=== PATIENT | male | born 1965 | race Caucasian/White ===

== ENCOUNTER → 2018-03-18 14:08 | Outpatient (CLI) | payer BC, SELFPAY ==
--- NOTE | 2018-03-18 14:14 | XR_ITS ---
XR foot LT min 3V HISTORY: ITS.REASON: RIGID PES PLANUS ORDERING PHYSICIAN: Fox Teague MD PATIENT AGE: 53 years COMPARISON: None FINDINGS: There is moderate pes planus. Bony hypertrophic changes are present dorsally at the talonavicular joint. Severe subarticular cystic changes are present involving the cuneiforms. There are dysplastic changes of the navicular is not well delineated due to the severe cystic changes. There is medial displacement of the navicular. IMPRESSION: Pes planus with destructive changes of the navicular and severe subarticular cystic changes of the cuneiforms. There is medial displacement of the navicular. These findings are consistent with the mid foot Charcot joint
--- NOTE | 2018-03-18 14:14 | XR_ITS ---
XR ankle LT min 3V HISTORY: ITS.REASON: RIGID PES PLANUS ORDERING PHYSICIAN: Fox Teague MD PATIENT AGE: 53 years Comparison: None FINDINGS: No fracture or dislocation. No lytic or blastic change. There is normal mineralization.. The joint spaces are well-preserved. No significant degenerative/arthritic changes. No erosive changes evident. Mid foot Charcot joint is noted as described the foot report IMPRESSION: Negative ankle
== END ==
PROVIDERS: PCP Family Medicine; Visit Provider Family Medicine
DX: Q66.52 Congenital pes planus, left foot (principal); G89.29 Other chronic pain; M25.572 Pain in left ankle and joints of left foot
CPT/HCPCS: 73610; 73630

== ENCOUNTER → 2018-06-15 08:54 | Outpatient (CLI) | payer BC, SELFPAY ==
--- NOTE | 2018-06-15 08:58 | XR_ITS ---
XR ankle wt bearing LT min 3V HISTORY: Bilateral ankle pain ITS.REASON: pain ORDERING PHYSICIAN: Lima Macedo DPM PATIENT AGE: 53 years Comparison: None FINDINGS: No fracture or dislocation. No lytic or blastic change. There is normal mineralization.. The joint spaces are well-preserved. No significant degenerative/arthritic changes. No erosive changes evident. IMPRESSION: Negative ankle, no acute finding
--- NOTE | 2018-06-15 08:58 | XR_ITS ---
XR ankle wt bearing RT min 3V HISTORY: ITS.REASON: pain ORDERING PHYSICIAN: Lima Macedo DPM PATIENT AGE: 53 years Comparison: None FINDINGS: No fracture or dislocation. No lytic or blastic change. There is normal mineralization.. There are 2 calcific densities which are medial to the distal aspect of the fibula and may represent sequela from old injury or degenerative change. The ankle mortise is well preserved and the talar dome has an unremarkable appearance. IMPRESSION: 1. No acute finding. 2. Accessory ossicles versus old fracture medial to the tip of the fibula
--- NOTE | 2018-06-15 08:58 | XR_ITS ---
XR foot wt bearing LT 3V HISTORY: ITS.REASON: pain ORDERING PHYSICIAN: Lima Macedo DPM PATIENT AGE: 53 years COMPARISON: None FINDINGS: There is moderate pes planus. Bony hypertrophic changes are present dorsally at the talonavicular joint. Severe subarticular cystic changes are present involving the cuneiforms. There are severe dysplastic changes of the navicular with flattening of the navicular and superior displacement and medial displacement of the remaining navicular fragment. Severe subarticular cystic changes are present at the navicular cuneiform joint involving both medial and intermediate cuneiforms. IMPRESSION: Pes planus with destructive changes of the navicular and severe subarticular cystic changes of the cuneiforms. There is medial displacement of the navicular. These findings are consistent with the mid foot Charcot joint
--- NOTE | 2018-06-15 08:58 | XR_ITS ---
XR foot wt bearing RT 3V HISTORY: Foot pain ITS.REASON: pain ORDERING PHYSICIAN: Lima Macedo DPM PATIENT AGE: 53 years COMPARISON: None FINDINGS: No fracture or dislocation. No lytic or blastic change. There is normal mineralization.. The joint spaces are well-preserved. No significant degenerative/arthritic changes. No erosive changes evident. IMPRESSION: Negative, no acute finding
== END ==
PROVIDERS: PCP Family Medicine; Visit Provider Podiatrist
DX: M76.822 Posterior tibial tendinitis, left leg (principal); M19.072 Primary osteoarthritis, left ankle and foot; M79.672 Pain in left foot
CPT/HCPCS: 73610; 73630

== ENCOUNTER → 2018-07-01 10:05 | Outpatient (POV) | payer BC, SELFPAY | PROVIDERS: Visit Provider Podiatrist | DX: Z00.00 Encounter for general adult medical examination without abnormal findings (principal) ==

== ENCOUNTER 2018-08-06 08:00 | Outpatient (RCR) | payer BC, SELFPAY ==
--- NOTE | 2018-06-23 12:00 | HMH.PTOPEV ---
PT Outpatient Evaluation Rehab PT Outpatient Evaluation Start: 06/23/18 11:48 Freq: Status: Active Protocol: Document 06/23/18 11:48 RADHA (Rec: 06/23/18 11:59 VELVETBRIAN [id number]) Electronically Signed By Forest Washington, PT 06/23/18 11:48 Outpatient Therapy Subjective History Subjective History Patient is a 53 year old male presenting to outpatient PT with report of L foot/ankle pain of insidous onset starting approximately 2 years ago. Pt report relief of pain with addition of ankle brace and powerstep inserts. 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 TTP about posterior tibialis distal attachment. Comorbidities include hx of seizures, narcolepsy and HTN. Chief Complaint Pain,Stiff,Swelling Symptom Type Sharp,Tingling Symptoms Relieved By Rest/Positioning,Ice, Prescription Meds Symptoms Aggravated By Standing,Physical Activity, Walking Prior Functional Limitations None Current Functional Limitations Housework,Standing,Squatting, Recreation Activity,Walking, Stairs,Balance Symptom Description Intermittent Level of pain today (0-10) 4 Pain scale - at its best (0-10) 2 Pain scale - at its worst (0-10) 8 Ankle/Foot Eval Gait Observation General Gait Pattern Observation Antalgic Gait,Decrease Weight Bear (L) Palpation Tenderness left Ankle/Foot Palpation Findings Tenderness Ankle/Foot Palpation Overall Comment distal post-tib insertion/mm belly/tendon ROM Ankle/Foot Dorsiflexion w/Knee Extended 8 Active Range Motion (degrees) Ankle/Foot Plantar Flexion Active Range 60 of Motion (degrees) Ankle/Foot Eversion Active Range of 11 Motion (degrees) Ankle/Foot Inversion Active Range of 22 Motion (degrees) Ankle/Foot ROM Limitations Soft Tissue Tightness Great Toe ROM Reason Not Measured Within Functional Limits Accessory Movements Ankle Accessory Movements that Elicit Tibial Ventral Charlotte,Talus Symptoms Dorsal Charlotte MMT left Ankle Dorsiflexion Strength Grade 4 Good Ankle Plantarflexion Strength Grade 4 Good Foot Eversion Strength Grade 4 Good
== END 2018-08-06 08:05 | disposition home or self-care (01) ==
LOC: PT 08:00
PROVIDERS: Visit Provider Podiatrist
DX: M76.822 Posterior tibial tendinitis, left leg (principal); M19.072 Primary osteoarthritis, left ankle and foot
CPT/HCPCS: 97010; 97014; 97035; 97110; 97163; G0283

== ENCOUNTER → 2020-03-14 16:54 | Outpatient (CLI) | payer BC, SELFPAY ==
[2020-03-16 07:41] LABS: Covid-19 Nasal PCR Sendout P&C NEGATIVE
== END ==
PROVIDERS: PCP Family Medicine; Visit Provider Family Medicine
DX: Z11.52 Encounter for screening for COVID-19 (principal); R68.89 Other general symptoms and signs
CPT/HCPCS: U0004

== ENCOUNTER → 2020-08-15 12:51 | Outpatient (CLI) | payer BC, SELFPAY ==
--- NOTE | 2020-08-15 12:57 | XR_ITS ---
PROCEDURE: XR LUMBAR SPINE MIN 4V CLINICAL INDICATION: NEUROGENIC CLAUDATION, ACUTE MIDLINE LOW BACK PAIN COMPARISON: No exams were available for comparison FINDINGS: Five views are obtained. Severe degenerative change of L5-S1 with extensive diffuse degenerative changes also seen at the lumbar spine with moderate scoliosis convex to the left. Severe bilateral facet spondylosis at L5-S1 with moderate bilateral facet spondylosis of L3-4 and L4-5. SI joints are normal. Some degenerative change of the hip joints. IMPRESSION: Severe diffuse degenerative changes of the lumbar spine most pronounced at L5-S1 extensive bilateral facet spondylosis of the lower lumbar levels. Extensive sclerotic change of the endplates of L5 and S1. Suggest MRI lumbar spine for further assessment of these findings. No acute fracture or subluxation. Moderate scoliosis convex to the left. Dictated by: Bryson English MD 08/15/2020 13:36 Bryson English MD in [place] 08/15/2020 13:36
== END ==
PROVIDERS: PCP Family Medicine; Visit Provider Family Medicine
DX: M48.062 Spinal stenosis, lumbar region with neurogenic claudication (principal); M54.5 Low back pain; Z92.29 Personal history of other drug therapy
CPT/HCPCS: 72110

== ENCOUNTER → 2020-08-17 08:01 | Outpatient (CLI) | payer BC, SELFPAY ==
--- NOTE | 2020-08-17 08:04 | CT_ITS ---
PROCEDURE: CT LUNG SCREENING CLINICAL INDICATION: H/O NICOTINE DEPENDENCE COMPARISON: No exams were available for comparison TECHNIQUE: The exam was performed on a GE Light Speed [address] scanner using 2.90 mGy CTDI. A low dose helical CT CHEST was performed on a multi-detector scanner. All CT scans at the facility use one or more dose reduction, viz: automated exposure control, ma/kV adjustment per patient size (including targeted exams where dose is matched to indication, i.e. head), or iterative reconstruction technique. The LDCT was performed in a facility that meets the criteria for the screening program. Data regarding this exam was submitted to ACR which is an approved registry. The order for this exam indicates that it came as a result of a lung cancer screening counseling shard decision-making visit that included all the elements required of such a visit including smoking cessation. The radiologist interpreting this exam meets the CMS criteria for the LDCT lung cancer screening program. The exam is reported using the Lung-RADS classification scale and reported to the ACR registry. NOTE: This study was performed for the specific purposes of lung cancer screening and is not an alternative to diagnostic chest CT. RADIATION DOSE: CTDI vol(CT dose Index-volume) = 2.90mG DLP (Dose Length Product) = 118.03 mGcm FINDINGS: There are minimal emphysematous changes with mild right basilar scar versus atelectasis. No pulmonary consolidation or ground-glass opacities in the lungs. No discrete pulmonary nodules. Heart is not enlarged. No pericardial effusion or thickening. Great vessels off the aortic arch are normal. No pleural effusion or pneumothorax. Minimal calcification of the thoracic aorta without aneurysm. A few small non-specific middle mediastinal lymph nodes. Hilar regions grossly appear normal. No enlarged axillary nodes. Images of the upper abdomen show no focal abnormality. Gallbladder surgically absent. There are moderate diffuse degenerative changes of the thoracic spine. No acute bony abnormality noted. OTHER FINDINGS: No other pertinent findings evident. IMPRESSION: Lung-RADS Category 2 Benign Appearance or Behavior Follow-up: Serial follow-up in 1 year Minimal emphysematous changes with mild right basilar scar versus atelectasis. Dictated by: Bryson English MD 08/17/2020 09:51 Bryson English MD in [place] 08/17/2020 09:51
== END ==
PROVIDERS: PCP Family Medicine; Visit Provider Family Medicine
DX: Z87.891 Personal history of nicotine dependence (principal); Z12.2 Encounter for screening for malignant neoplasm of respiratory organs
CPT/HCPCS: 71271

== ENCOUNTER → 2020-08-28 14:26 | Outpatient (CLI) | payer BC, SELFPAY ==
--- NOTE | 2020-08-28 14:27 | MR_ITS ---
PROCEDURE: MR LUMBAR SPINE WO CON CLINICAL INDICATION: ACUTE MIDLINE LOW BACK PAIN WITHOUT SCIATICA Low back pain. DDD. Bilateral leg pain, tingling, and numbness. COMPARISON: CR XR LUMBAR SPINE MIN 4V from 08/15/2020 TECHNIQUE: Standard multiplanar multiecho sequences are performed without contrast. 3-D MIP and myelographic images are also rendered and reviewed FINDINGS: Motion artifact somewhat obscures fine detail. Spinal cord ends at the L1 level. There is mild lumbar scoliosis convex left. There is straightening of the lumbar lordosis. L1-L2: Unremarkable. L2-L3: Degenerative disc disease with endplate osteophytes anteriorly. There is mild concentric bulging disc with facet and ligamentum hypertrophic change with bilateral lateral recess narrowing slightly greater on the left. There is moderate to severe right-sided foraminal narrowing and mild left foraminal narrowing. There is broad-based right foraminal and lateral disc protrusion contributing to the foraminal narrowing on the right with impingement upon the exiting L2 nerve root. Type 1 endplate changes on the right L3-L4: Degenerative disc disease with bulging disc with facet hypertrophic change. There is a broad-based right paracentral foraminal lateral disc protrusion causing right lateral recess narrowing with severe right-sided foraminal narrowing from the disc and facet hypertrophic change. Canal stenosis noted at this level. L4-5: Degenerative disc disease with bulging disc. There is a broad based left paracentral and foraminal disc protrusion along with severe left-sided facet and ligamentum hypertrophic change causing left lateral recess narrowing and very severe left-sided foraminal narrowing impinging upon the exiting left L4 nerve root and also the left L5 nerve root. Type 1 endplate changes are present. L5-S1: Degenerative disc disease with mild bulging disc with facet and ligamentum hypertrophic change and severe bilateral foraminal narrowing. No extruded herniated disc are evident. IMPRESSION: Abnormal MRI of the lumbar spine. There is multilevel degenerative disc disease with endplate osteophytes, bulging disc, disc protrusions, and facet and ligamentum hypertrophic change resulting in lateral recess narrowing and foraminal narrowing. Please see above for detailed description at each level. Dictated by: Kiko Purcell MD 08/29/2020 08:44 Kiko Purcell MD in [place] 08/29/2020 08:44
== END ==
PROVIDERS: PCP Family Medicine; Visit Provider Family Medicine
DX: M54.5 Low back pain (principal)
CPT/HCPCS: 72148; 76376

== ENCOUNTER 2020-12-26 11:00 | Outpatient (RCR) | payer BC, SELFPAY | END 2020-12-26 11:05 | disposition home or self-care (01) | LOC: PT 11:00 | PROVIDERS: PCP Family Medicine; Visit Provider Physician Assistant | DX: M54.16 Radiculopathy, lumbar region (principal); M54.42 Lumbago with sciatica, left side; G89.29 Other chronic pain | CPT/HCPCS: 97010; 97012; 97014; 97110; 97163; 97164; G0283 ==

== ENCOUNTER → 2021-01-07 15:42 | Outpatient (CLI) | payer BC, SELFPAY ==
[2021-01-07 16:42] LABS: Basophils # 0.1 K/mm3 (0-0.2); Eosinophils # 0.2 K/mm3 (0.0-0.4); Eosinophils % 1.7 % (0.1-12.0); Hematocrit 44.5 % (42.0-52.0); Hemoglobin 14.6 g/dL (14.1-18.0); Mean Corpuscular HGB Conc 32.8 g/dL (31.8-35.4); Mean Corpuscular Hemoglobin 32.6 pg (27.0-31.2); Mean Corpuscular Volume 99.4 fl (80-94); Mean Platelet Volume 7.3 fl (7.4-10.4); Monocytes # 0.8 K/mm3 (0.1-1.0); Monocytes % 7.9 % (1.7-9.3); Neutrophils # 6.7 K/mm3 (1.8-7.8); Neutrophils % 68.5 % (37.0-80.0); Platelet Count 478 K/mm3 (142-424); Red Blood Count 4.48 M/mm3 (4.60-6.20); Red Cell Distribution Width 12.7 % (11.5-17.5); White Blood Count 9.8 K/mm3 (4.8-10.8)
[2021-01-07 18:18] LABS: Chloride 101 mmol/L (98-107); Potassium 5.9 mmoL/L (3.5-5.1); Sodium 133 mmol/L (136-145)
[2021-01-07 18:21] LABS: Anion Gap 14.9 mEq/L (5-15); Blood Urea Nitrogen 19 mg/dl (9-20); Calcium 9.8 mg/dl (8.4-10.2); Carbon Dioxide 23 mmol/L (22.0-30.0); Estimated Glomerular Filt Rate 100 ml/min (>60); GFR (African American) 121 ML/MIN (>60); Glucose 85 mg/dl (74-100)
== END ==
PROVIDERS: Visit Provider Surgery
DX: Z01.812 Encounter for preprocedural laboratory examination (principal); Z11.52 Encounter for screening for COVID-19; K40.20 Bilateral inguinal hernia, without obstruction or gangrene, not specified as recurrent
CPT/HCPCS: 36415; 80048; 85025; C9803; U0003; U0005

== ENCOUNTER 2021-01-08 10:41 | Day surgery (SDC) | payer BC, SELFPAY ==
[2021-01-07 11:19] VITALS: BMI 22.0
[2021-01-08] VITALS (12 sets, daily range): BP systolic 109–143; BP diastolic 66–87; PULSE 78–86; RESP 12–20; TEMP 36.6–43; O2SAT 94–98
--- NOTE | 2021-01-08 11:23 | ECG_ITS ---
APPROVED REPORT Exam: Resting ECG HR:78 bpm ECG Measurements Heart Rate 78 AXES OK 156 P 79 QRSd 74 QRS 60 QT 354 T 81 QTc 403 Conclusion Normal sinus rhythm Normal ECG Electronically signed by : Fox Silveira MD 01/11/2021 13:56:26
--- NOTE | 2021-01-08 11:30 | SUR.PREOP ---
UA WAS NOT COLLECTED AT LAB. DR RUIZ INFORMED AND STATED THEY WILL GET UA DURING SURGERY.
--- NOTE | 2021-01-08 11:32 | P.PN_ITS ---
[facility] Anesthesia Checklist - Patient Identification Patient Identification: Arm Band, Verbal (Name & ) - Structural Data Admitted From: Home Planned Operative Procedure/s: Open right Inguinal Hernia Repair Consent for Planned Operative Procedure(s) Verified: Yes Verified Documents: Surgical Consent - NPO Status Verified Time NPO: 00:00 - Additional verifications Anesthesia Reactions: No Hx Blood Transfusions: No Blood Transfusion Reaction: No - Cardiovascular Assessment Heart Sounds: S1 & S2 Pulse Rhythm: Regular - Airway Assessment C-Spine Mobility Assessed: Yes TMJ Mobility Assessed: Yes Dentition: Dentures-good fit - Neurological Assessment Level of Consciousness: Awake, Alert, Appropriate Hx Seizures: Yes - Anesthesia Plan Anesthesia Risk discussed: Yes ASA Class: III Anesthesia Type: General [facility] History I have reviewed the patient's past medical history: Yes Medical History: Reports:: Asthma, Chronic Obstructive Pulmonary Disease (COPD), Hypertension, Seizures Denies:: Cancer, Diabetes Mellitus Type 1, Diabetes Mellitus Type 2, Internal Pacemaker (PE after surgery 2004), Lung Disease, MRSA *Have you ever received a pneumonia vaccine?: No *Have you received a flu vaccine this season?: Yes Other Medical History: Reports: Other. Denies: Blood Transfusion Reaction Anesthesia experience/problems:: no issues Laterality Cases: Right: Arthroscopy Knee, Bilateral: Tonsillectomy Other Surgeries: Yes: Colonoscopy. No: Pacemaker (PE after surgery 2004) Amputation: No Fractures: Yes (right proximal fibula) - *Social History Last grade of school completed: Advanced degree Smoking Status: Current every day smoker Tobacco Type: cigarettes # Packs/Day (cigarettes): 1 Alcohol Intake: never Substance Use Type: other, denies use *Occupational Status:: employed Housing: house Household Members: spouse *Travel in the last 8 weeks: None Family Hx:: Cancer, Hypertension, Kidney Disease
--- NOTE | 2021-01-08 13:26 | HMH.OPNOTE ---
Date of procedure: 01/08/21 Pre-op Diagnosis:: Right inguinal hernia Post-op Diagnosis:: Same Procedure performed:: Open right inguinal hernia repair Surgeon:: Hemant Garcia MD Steward/Stewardess Smoke Room(s):: Jennifer BOWL TOPPER:: Jack Sweet Anesthesia: LMA Estimated blood loss (mL): 15 Operative findings:: Complex chronic indirect defect with severe tissue thickening throughout canal Operative note:: After informed consent was obtained the patient was taken to the operating room and placed in the supine position. General anesthesia with laryngeal mask airway was achieved. His abdomen and groin/scrotum were prepped and draped in a sterile fashion. After infiltration with local anesthetic an oblique right groin incision was made. The subcutaneous tissue was dissected with electrocautery through Jimmy's fascia to the level of the external aponeurosis. The external aponeurosis was sharply opened to the level of the external ring. The contents of the canal were carefully elevated. Chronic inflammatory changes/soft tissue thickening encountered. Dissection was very difficult. A complex indirect hernia sac was carefully free from surrounding tissue. The vas deferens and vasculature was densely adhered to the hernia sac. No obvious injury to these structures was noted. The hernia sac was inverted as an extra-large PerFix plug was secured in position with interrupted Ethibond. The PerFix overlay was secured to the shelving edge inferiorly and fascial margin superiorly with interrupted Ethibond. The external aponeurosis was reapproximated with running Vicryl suture. Jimmy's fascia was closed in the same manner. Skin was then reapproximated with 3-0 Stratafix in a running subcuticular fashion. Sterile dressings were applied and the patient was transferred to recovery in stable condition after removal of his laryngeal mask airway. Condition: stable Disposition: PACU Specimens:: None Complications:: No immediate
--- NOTE | 2021-01-08 13:37 | P.PN_ITS ---
[facility] Anesthesia Record Part I Intake, IV Amount: 150 Estimated blood loss (mL): 0 Urine output (mL): 100 Blood Pressure: 134/81 SaO2: 96 Pulse Rate: 84 Respiratory Rate: 12 Temperature: 99 F Patient is:: Awake, Stable Stable to PACU at:: 13:30
[2021-01-08 14:13] LABS: Microscopic,Cath URINE MICROSCOPIC (MICROSCOPIC)
[2021-01-08 14:17] LABS: Appearance,Urine/Cath CLEAR (Clear); Bilirubin,Cath Negative (Negative); Blood, Urine/Cath Negative (Negative); Color,Urine/Cath YELLOW (Yellow); Glucose,Urine/Cath (UA) Negative (Negative); Ketones,Urine/Cath Negative (Negative); Leukocyte Esterase,Cath Negative (Negative); Nitrate,Cath Negative (Negative); Protein,Urine/Cath Negative (Negative); Urobilinogen,Cath 0.2 EU/dl (0.2)
[2021-01-08 14:41] LABS: Bacteria,Urine/Cath TRACE /lpf; CA Oxalate Crystals,Ur/Cath 1+ /lpf; WBC,Urine/Cath Occasional #/hpf (0-3)
== END 2021-01-08 15:00 | disposition home or self-care (01) ==
LOC: OR 10:44
PROVIDERS: PCP Family Medicine; Visit Provider Surgery
PROC: (CPT 49505; principal; 2021-01-08 12:00)
DX: K40.90 Unilateral inguinal hernia, without obstruction or gangrene, not specified as recurrent (principal); K66.0 Peritoneal adhesions (postprocedural) (postinfection); J44.9 Chronic obstructive pulmonary disease, unspecified; I10 Essential (primary) hypertension; Z72.0 Tobacco use; Z80.9 Family history of malignant neoplasm, unspecified; Z82.49 Family history of ischemic heart disease and other diseases of the circulatory system; Z84.1 Family history of disorders of kidney and ureter; Z88.6 Allergy status to analgesic agent; Z79.899 Other long term (current) drug therapy
CPT/HCPCS: 49505; 81001; 93005; 96374; J2405

== ENCOUNTER 2021-08-07 16:00 | Outpatient (RCR) | payer BC, SELFPAY | END 2021-08-07 16:05 | disposition home or self-care (01) | LOC: PT 16:00 | PROVIDERS: PCP Family Medicine; Visit Provider Physician Assistant | DX: M54.42 Lumbago with sciatica, left side (principal); G89.29 Other chronic pain | CPT/HCPCS: 97010; 97012; 97014; 97110; 97163; 97164; G0283 ==

== ENCOUNTER → 2021-08-23 08:44 | Outpatient (CLI) | payer BC, SELFPAY ==
--- NOTE | 2021-08-23 08:52 | CT_ITS ---
FINAL REPORT CLINICAL HISTORY: ABNORMAL WEIGHT LOSS . ABD. PAIN, ACUTE, NONLOCIALIZED FINDINGS: CT OF THE ABDOMEN AND PELVIS WITH CONTRAST Axial CT images of the abdomen and pelvis were obtained after the administration of oral and iv contrast. Coronal reformatted images were also obtained and reviewed.This study was performed with techniques to keep radiation doses as low as reasonably achievable (ALARA). Individualized dose reduction techniques using automated exposure control or adjustment of mA and/or kV according to the patient's size were employed. Abdomen: The lung bases are clear. The heart is normal in size. The liver has an unremarkable appearance, without evidence of mass or biliary ductal dilatation. The patient is status post cholecystectomy. The spleen is unremarkable. No adrenal mass is present. The pancreas has an unremarkable appearance. The kidneys are normal, without evidence of mass or hydronephrosis. The aorta is normal in caliber. No mass or adenopathy is noted. There is no abnormal fluid collection seen. Pelvis: The appendix is not identified. The urinary bladder is unremarkable. No inflammatory process is seen. There is no evidence of mass or adenopathy. There is no evidence of bowel obstruction. There are degenerative changes of the lumbar spine. IMPRESSION: No evidence of acute intra-abdominal process. Reviewed, Interpreted and Dictated by David Og III, MD Transcribed by Bri Ford Authenticated and [facility]
== END ==
PROVIDERS: PCP Family Medicine; Visit Provider Family Medicine
DX: R10.13 Epigastric pain (principal); R14.0 Abdominal distension (gaseous); R63.4 Abnormal weight loss; Z68.22 Body mass index [BMI] 22.0-22.9, adult
CPT/HCPCS: 74177; Q9967

== ENCOUNTER → 2022-06-04 08:45 | Outpatient (CLI) | payer BC, SELFPAY ==
--- NOTE | 2022-06-04 08:49 | NM_ITS ---
FINAL REPORT TECHNIQUE: Sequential anterior images were obtained after the ingestion of a eggs, white toast, butter, and water radiolabeled with 0.60 mCi technetium 99M sulfur colloid. CLINICAL HISTORY: PANCREATIC INSUFFICIENCY,IBS,N/V 9:15 am .60 mci Tc sulfur colloid injected into 2 whole eggs white toast with butter 6 oz cup of water COMPARISON: None FINDINGS: GASTRIC EMPTYING SCAN Static images show normal emptying of the stomach into the small bowel. Based on the time activity curve, the estimated half-emptying time is 124 minutes. IMPRESSION: Abnormally elevated gastric emptying time. This may be secondary to gastro paresis or gastric outlet obstruction. Reviewed, Interpreted and Dictated by Shaw Michel MD Transcribed by Bri Ford Authenticated and . [facility]
== END ==
PROVIDERS: PCP Family Medicine; Visit Provider Nurse Practitioner Family
DX: R11.2 Nausea with vomiting, unspecified (principal); K86.81 Exocrine pancreatic insufficiency; K58.0 Irritable bowel syndrome with diarrhea; K31.84 Gastroparesis; R63.4 Abnormal weight loss
CPT/HCPCS: 78264; A9541

== ENCOUNTER → 2022-09-04 16:15 | Outpatient (CLI) | payer BC, SELFPAY ==
[2022-09-11 17:09] LABS: HLA-B27 Negative (.)
== END ==
PROVIDERS: PCP Family Medicine; Visit Provider Physician Assistant Medical
DX: G47.411 Narcolepsy with cataplexy (principal)
CPT/HCPCS: 36415; 86812

== ENCOUNTER 2024-02-26 11:00 | Outpatient (RCR) | payer BC, SELFPAY | END 2024-02-26 23:59 | disposition home or self-care (01) | LOC: PT 11:00 | PROVIDERS: Visit Provider Orthopaedic Surgery | DX: M48.02 Spinal stenosis, cervical region (principal); M43.16 Spondylolisthesis, lumbar region | CPT/HCPCS: 97014; 97110; 97140; 97163; G0283 ==

== ENCOUNTER 2024-03-08 07:47 | Outpatient (CLI) | payer BC, SELFPAY ==
--- NOTE | 2024-03-08 08:12 | CT_ITS ---
FINAL REPORT TECHNIQUE: After the administration of intravenous contrast, axial images were obtained through the abdomen and pelvis by computed tomography. The study was performed with techniques to keep radiation dose as low as reasonably achievable, (ALARA). Individual dose reduction techniques using automated exposure control or adjustment of mA and/or kV according to the patient's size were employed. CLINICAL HISTORY: RUQ ABDOMINAL MASS/NAUSEA VOMITING COMPARISON: 02/14/2024 FINDINGS: Abdomen: Scarring is noted at the lung bases. The liver parenchyma is homogeneous. The gallbladder is surgically absent. The spleen, pancreas, and adrenals appear unremarkable. There is a retroaortic left renal vein. The kidneys are unremarkable. Pelvis: There is a large amount of stool throughout the colon, particularly in the cecum. Findings are consistent with constipation and are considerably more evident than on the previous study. The urinary bladder is incompletely distended. Structure believed to represent the appendix is seen in the right lower quadrant. There are multiple loops of unopacified and closely apposed small bowel noted throughout the abdomen. There is relative lack of intra-abdominal fat which limits diagnostic sensitivity. Moderate iliac vessel calcification is noted. There are advanced changes of degenerative disc disease L2-3 through L5-S1. IMPRESSION: Constipation. Reviewed, Interpreted and Dictated by Shaw Michel MD Transcribed by Bri Ford Authenticated and [facility]
[2024-03-08 08:30] LABS: Blood Urea Nitrogen 30 mg/dl (9-20); Estimated Glomerular Filt Rate 98 ml/min (>60); GFR (African American) 119 ML/MIN (>60)
[2024-03-08] MEDS: IOPAMIDOL-370 (76%);100ML BOTTLE 75 ML IV (09:00)
[2024-03-08] MEDS: SODIUM CHLORIDE 0.9% 10ML SYR (RAD ONLY) 10 ML IV (09:00)
== END 2024-03-08 23:59 | disposition home or self-care (01) ==
LOC: RAD 07:49
PROVIDERS: PCP Family Medicine; Visit Provider Family Medicine
DX: R19.03 Right lower quadrant abdominal swelling, mass and lump (principal); R11.2 Nausea with vomiting, unspecified
CPT/HCPCS: 36415; 74177; 82565; 84520; Q9967

== ENCOUNTER 2024-03-31 10:46 | Day surgery (SDC) | payer BC, SELFPAY ==
[2024-03-29 16:36] VITALS: BMI 19.8
[2024-03-31 11:18] VITALS: BP 135/63; PULSE 62; RESP 18; TEMP 36.2; O2SAT 91
--- NOTE | 2024-03-31 11:18 | P.PNANES_ITS ---
[facility] Disclaimer: The information contained in this section may have been updated after the patient was seen, as this information can be updated by other users. Medical History (Updated 03/31/24 @ 11:19 by Mendoza Be RN) History of seizure Gastroparesis Injury of right leg Presence of neurostimulator Cholecystectomy planned Tonsillectomy planned Surgical History (Updated 03/31/24 @ 11:15 by Mendoza Be RN) History of surgery on lower extremity Family History Other No significant family history Social History Smoking Status: Current every day smoker tobacco type: cigarettes packs per day: 1 second hand exposure: No alcohol intake: never substance use type: denies use and other current occupational status: employed Travel in the last 8 weeks: None household members: spouse housing: house current occupation: [employer] current occupational exposures/hazards: No caffeine: Yes Have you lived/traveled outside [place] in past 30 days?: No Contact w/someone who lives/traveled outside US past 30 days?: No Exposure to someone with infectious disease in past 14 days?: No Do you have a fever (greater than 100.4 F or 38 C)?: No Have you tested positive for COVID-19: No Exposed to someone with COVID-19 in past 14 days?: No Do you have a sore throat?: No Do you have a cough?: No Do you have any weakness?: No Do you have any diarrhea?: No Are you experiencing any unusual bleeding?: No Do you have any muscle aches/pain?: No Do you have any abdominal pain?: No Are you experiencing loss of taste or smell?: No [facility] Anesthesia Checklist Patient Identification Patient Identification: Arm Band and Verbal (Name & ) Structural Data Admitted From: Home Planned Operative Procedure/s: colonoscopy Consent for Planned Operative Procedure(s) Verified: Yes Verified Documents: Surgical Consent and History and Physical NPO Status Verified Time NPO: 06:00 Additional verifications Patient : No Anesthesia Reactions: No Hx Blood Transfusions: No Blood Transfusion Reaction: No Cardiovascular Assessment Heart Sounds: S1 & S2 Pulse Rhythm: Irregular Peripheral Edema: No Airway Assessment Mallampati Score:: Class II C-Spine Mobility Assessed: Yes TMJ Mobility Assessed: Yes Dentition: Good Dentition Neurological Assessment Level of Consciousness: Awake, Alert, Appropriate and Follows Commands Hx Seizures: No Numbness or tingling in extremities: No Anesthesia Plan Anesthesia Risk discussed: Yes Anesthesia Plan: Verified ASA Class: II Anesthesia Type: MAC
--- NOTE | 2024-03-31 12:34 | P.HP_ITS ---
History of Present Illness *Admission Date: 03/31/24 *Reason for visit:: Personal history of adenomatous colon polyps *History of present illness: Mr. Pop is a 59-year-old gentleman who is here for surveillance colonoscopy secondary to a personal history of adenomatous polyps. The examination is deemed medically necessary for surveillance colonoscopy. The patient has been seen, interviewed and examined prior to the procedure by both myself and the anesthesia provider. [facility] Disclaimer: The information contained in this section may have been updated after the patient was seen, as this information can be updated by other users. Medical History (Updated 03/31/24 @ 11:24 by Mendoza Be RN) Drop foot gait History of seizure Gastroparesis Injury of right leg Presence of neurostimulator Cholecystectomy planned Tonsillectomy planned Surgical History (Updated 03/31/24 @ 11:15 by Mendoza Be RN) History of surgery on lower extremity Family History Other No significant family history Social History Smoking Status: Current every day smoker tobacco type: cigarettes packs per day: 1 second hand exposure: No alcohol intake: never substance use type: denies use and other current occupational status: employed Travel in the last 8 weeks: None household members: spouse housing: house current occupation: [employer] current occupational exposures/hazards: No caffeine: Yes Have you lived/traveled outside [place] in past 30 days?: No Contact w/someone who lives/traveled outside [place] past 30 days?: No Exposure to someone with infectious disease in past 14 days?: No Do you have a fever (greater than 100.4 F or 38 C)?: No Have you tested positive for COVID-19: No Exposed to someone with COVID-19 in past 14 days?: No Do you have a sore throat?: No Do you have a cough?: No Do you have any weakness?: No Do you have any diarrhea?: No Are you experiencing any unusual bleeding?: No Do you have any muscle aches/pain?: No Do you have any abdominal pain?: No Are you experiencing loss of taste or smell?: No Other Medical History Have you received the Flu Vaccine for this season: Yes Have you received the Pneumonia Vaccine: No Review of Systems Review of Systems Review of systems (narrative): Negative *Cardiovascular Comments: Negative *Gastrointestinal Comments: Negative *Genitourinary Comments: Negative *Musculoskeletal Comments: Negative *Neurologic Comments: Negative Meds Home Medications and Allergies Home Medications ?Medication ?Instructions ?Recorded ?Confirmed ?Type carvedilol 12.5 mg tablet 12.5 mg PO DAILY htn #60 tabs 09/14/18 03/31/24 History lamotrigine 150 mg tablet 375 mg PO DAILY seizures #75 tabs 09/14/18 03/31/24 History lidocaine 5 % topical patch 1 patch topical NEEDED PRN Pain 09/14/18 03/31/24 History #60 ea modafinil 200 mg tablet 200 mg PO DAILY stimulant 01/02/21 03/31/24 History trazodone 50 mg tablet 50 mg PO NEEDED PRN Sleep 01/02/21 03/31/24 History acetaminophen 325 mg tablet 650 mg PO NEEDED PRN As Needed 01/08/21 03/31/24 History For Fever Or Pain ibuprofen 200 mg tablet 400 mg PO NEEDED PRN PAIN 01/08/21 03/31/24 History alprazolam 1 mg tablet 1 mg PO DAILY PRN mood #90 tabs 01/21/24 03/31/24 History aripiprazole 5 mg tablet 5 mg PO DAILY 01/21/24 03/31/24 History buprenorphine 8 mg-naloxone 2 mg 1.5 tab sublingual DAILY 01/21/24 03/31/24 History sublingual tablet hyoscyamine sulfate 0.125 mg tablet 0.125 mg PO DAILY PRN stomach 01/21/24 03/31/24 Rx spasms #30 tabs stnkau-vftbwxal-dlzoivr 2 cap PO TID #180 caps 01/21/24 03/31/24 Rx 36,000-114,000-180,000 unit capsule,delay rel (Creon) meloxicam 7.5 mg tablet 7.5 mg PO DAILY 01/21/24 03/31/24 History metoclopramide HCl 15 mg/spray 1 spray intranasal QID 01/21/24 03/31/24 History nasal spray with pump (Gimoti) pregabalin 150 mg capsule 150 mg PO DAILY 01/21/24 03/31/24 History New Prescriptions to Start Prescriptions: Allergies Allergy/AdvReac Type Severity Reaction Status Date / Time naproxen (NAPROXEN) Allergy Mild NA-NAUSEA/V Verified 03/31/24 11:23 OMITING Exam Data for Last 24 hours Vital signs and Labs for Last 24 Hours: Temp Pulse Resp BP Pulse Ox O2 Del Method 97.2 F L 62 18 135/63 91 L Room Air 03/31/24 11:18 03/31/24 11:18 03/31/24 11:18 03/31/24 11:18 03/31/24 11:18 03/31/24 11:18 I & O for Last 24 hours: Intake & Output 03/28/24 03/29/24 03/30/24 03/31/24 23:59 23:59 23:59 23:59 Weight 130 lb *Routine HEENT Exam Head: Present normocephalic Eye: Present EOMI and PERRL ENT: Present mucous membranes moist *Routine Neck Exam Neck: Present supple *Routine Respiratory Exam Respiratory: Present CTA bilaterally *Routine Cardiovascular Exam Cardiovascular: Present RRR *Routine Abdominal Exam Abdominal: Present soft and normoactive bowel sounds; Absent tenderness *Routine Rectal Exam Rectal:: deferred *Routine Genitalia Exam Genitalia:: deferred *Routine Extremities Exam Extremities: Absent cyanosis, clubbing or edema *Routine Skin Exam Skin: Present warm; Absent rash *Routine Neurological Exam Neurological: Present alert and oriented X3 Assessment and Plan *Assessment and plan (1) History of adenomatous polyp of colon: Status: Acute Category: Medical Code(s): Z86.0101 - Personal history of adenomatous and serrated colon polyps Plan A/P: 1. Personal history of adenomatous colon polyp is the preprocedural diagnosis. Last colonoscopy was September 2018. The patient will be anesthetized/sedated using MAC sedation. The patient has been seen and examined. Cardiac and lung assessment prior to the examination is stable. Proceed with planned surveillance colonoscopy
[2024-03-31 12:36] VITALS: O2SAT 98
--- NOTE | 2024-03-31 13:07 | P.PCN_ITS ---
[facility] Procedure Note Date: 03/31/24 Time: 13:08 Procedure Note:: Colonoscopy Procedure Report: Colonoscopy with cold snare polypectomy Endoscopist: Talat Hastings II, MD Referring physician: David Teague MD Date of Procedure: March 31, 2024 Equipment: Olympus 190 variable stiffness pediatric colonoscope Sedation: MAC sedation Indication: Mr. Pop is a 59-year-old gentleman who is here for 5-year surveillance secondary to a personal history of an adenomatous polyp. His col onoscopy in September 2018 revealed a single polyp (tubular adenoma) which was removed. The patient has had some gradual weight loss. He does have a history of EPI and is on Creon. He also takes FiberCon. The patient has had a lot of gassiness and bloating. His gastric emptying study showed a T1 half emptying time of the 124 minutes. He has seen a dietitian and was on a low FODMAP diet. He reports some lower abdominal discomfort which is chronic. Overall, his digestive symptoms are improved. He reports no rectal bleeding or family history of colon cancer. Procedure: Prior to the procedure, a history and physical exam was performed, and patient's medications and allergies were reviewed. The risks, benefits and alternatives of the sedation and procedure were discussed with the patient. All questions were answered and informed consent was obtained. The patient was brought to the procedure room. Patient identification and proposed procedure were verified by the physician and the nurse. The patient was placed in a left lateral decubitus position and the scope was passed under direct vision. Throughout the procedure, the patient's blood pressure, pulse, and oxygen saturations were monitored continuously. The colonoscopy was accomplished without difficulty. The patient tolerated the procedure well. Findings: On digital rectal examination there was normal rectal tone. There were no external hemorrhoids. The colonoscope was introduced through the anal canal to the rectum and advanced to the cecum. The ileocecal valve and appendiceal orifice were identified. The scope was advanced a short distance into the ileum which appeared grossly normal. The scope was then withdrawn into the colon. There were 2 polyps (ascending x 1 (4 mm) and sigmoid x 1 (4 mm)). Both of these were removed via cold snare polypectomy. The remaining cecum, ascending and transverse colon and mucosa were grossly normal. There were extensively scattered diverticuli throughout the descending and sigmoid colon (LEFT colon). The rectum itself was normal. Upon retroflexion within the rectum there were grade 1-2 internal hemorrhoids. The preparation was excellent throughout with Benavides Preparation Score of 9. The cecal time was 12 minutes. Impression: 1. Diminutive colonic polyps x 2 2. Extensive left-sided diverticulosis 3. Grade 1-2 internal hemorrhoids Plan: I will follow-up the polyp histology and recommend repeat surveillance colonoscopy again in 7 years if the polyps are adenomatous. I would continue dietary measures (low residue/low FODMAP), fiber bulk and Creon. I will discuss additional management options.
[2024-03-31 13:13] VITALS: BP 107/64; PULSE 64; RESP 16; TEMP 36.5; O2SAT 97
[2024-03-31 13:23] VITALS: BP 137/90; PULSE 60; RESP 16; O2SAT 96
[2024-03-31 13:33] VITALS: BP 134/82; PULSE 61; RESP 16; O2SAT 95
[2024-03-31 13:43] VITALS: BP 148/86; PULSE 70; RESP 16; TEMP 36.5; O2SAT 94
== END 2024-03-31 14:57 | disposition home or self-care (01) ==
PROVIDERS: PCP Family Medicine; Visit Provider Internal Medicine Gastroenterology
PROC: (CPT 45385; principal; 2024-03-31 12:30)
DX: R10.9 Unspecified abdominal pain (principal); Z86.0101 Personal history of adenomatous and serrated colon polyps; K63.5 Polyp of colon; K57.30 Diverticulosis of large intestine without perforation or abscess without bleeding; K64.8 Other hemorrhoids
CPT/HCPCS: 45385

== ENCOUNTER 2024-04-01 10:00 | Outpatient (RCR) | payer BC, SELFPAY | END 2024-04-01 23:59 | disposition home or self-care (01) | LOC: PT 10:00 | PROVIDERS: Visit Provider Orthopaedic Surgery | DX: M48.02 Spinal stenosis, cervical region (principal); M43.16 Spondylolisthesis, lumbar region | CPT/HCPCS: 97014; 97110; 97140; 97530; G0283 ==

== ENCOUNTER 2024-04-08 15:00 | Outpatient (RCR) | payer BC, SELFPAY | END 2024-04-08 23:59 | disposition home or self-care (01) | LOC: PT 15:00 | PROVIDERS: Visit Provider Orthopaedic Surgery | DX: M48.02 Spinal stenosis, cervical region (principal); M43.16 Spondylolisthesis, lumbar region | CPT/HCPCS: 97014; 97110; 97140; G0283 ==

== ENCOUNTER 2024-10-26 13:51 | Outpatient (RCR) | payer BC, MEDICARE, SELFPAY | END 2024-10-26 23:59 | disposition home or self-care (01) | LOC: PT 13:51 | PROVIDERS: PCP Family Medicine; Visit Provider Orthopaedic Surgery | DX: M43.16 Spondylolisthesis, lumbar region (principal) | CPT/HCPCS: 97110; 97161 ==

== ENCOUNTER 2024-11-22 15:00 | Outpatient (RCR) | payer BC, MEDICARE, SELFPAY | END 2024-11-22 23:59 | disposition home or self-care (01) | LOC: PT 15:00 | PROVIDERS: PCP Family Medicine; Visit Provider Orthopaedic Surgery | DX: M43.16 Spondylolisthesis, lumbar region (principal) | CPT/HCPCS: 97110; 97530 ==

== ENCOUNTER 2024-12-13 15:00 | Outpatient (RCR) | payer BC, MEDICARE, SELFPAY | END 2024-12-13 23:59 | disposition home or self-care (01) | LOC: PT 15:00 | PROVIDERS: PCP Family Medicine; Visit Provider Orthopaedic Surgery | DX: M43.16 Spondylolisthesis, lumbar region (principal) | CPT/HCPCS: 97110; 97530 ==

== ENCOUNTER 2025-01-03 14:53 | Outpatient (RCR) | payer BC, MEDICARE, SELFPAY | END 2025-01-03 23:59 | disposition home or self-care (01) | LOC: PT 14:53 | PROVIDERS: PCP Family Medicine; Visit Provider Orthopaedic Surgery | DX: M43.16 Spondylolisthesis, lumbar region (principal) ==